=== PATIENT | female | born 1995 ===

== ENCOUNTER 2024-03-05 07:30 | Emergency (ER) | payer OTHER, SELFPAY ==
--- NOTE | ~2024-03-05 | XR_ITS ---
RADIOGRAPH RIGHT ANKLE AND RIGHT FOOT CLINICAL HISTORY: Pain. COMPARISON: No relevant prior studies are available for comparison. TECHNIQUE: 2 views of the right ankle and 3 views of the right foot. FINDINGS: No acute fracture or subluxation. Joint spaces are maintained. No erosive changes. No unusual soft tissue calcifications. Mild diffuse nonspecific soft tissue swelling. XR/XR foot RT min 3V IMPRESSION: 1. No acute fracture or subluxation. 2. Mild diffuse nonspecific soft tissue swelling. Electronically signed by: Brie Bell MD 03/05/2024 08:48 AM EDT
--- NOTE | ~2024-03-05 | XR_ITS ---
RADIOGRAPH RIGHT ANKLE AND RIGHT FOOT CLINICAL HISTORY: Pain. COMPARISON: No relevant prior studies are available for comparison. TECHNIQUE: 2 views of the right ankle and 3 views of the right foot. FINDINGS: No acute fracture or subluxation. Joint spaces are maintained. No erosive changes. No unusual soft tissue calcifications. Mild diffuse nonspecific soft tissue swelling. XR/XR ankle RT min 3V IMPRESSION: 1. No acute fracture or subluxation. 2. Mild diffuse nonspecific soft tissue swelling. Electronically signed by: Brie Bell MD 03/05/2024 08:48 AM EDT
--- NOTE | 2024-03-05 07:34 | ED.GENADULT ---
HPI - General Adult General Chief complaint: Extremity Injury, Lower Stated complaint: r foot inj Time Seen by Provider: 03/05/24 07:33 Source: patient Mode of arrival: ambulatory Limitations: no limitations History of Present Illness ED Provider: Summer Morris PA-C HPI narrative: Patient is a 28 year old assigned female at with no reported medical history presenting to the emergency department today with right ankle pain. Patient states that 1 week ago she jumped and landed on her foot in an inverted way and heard a loud pop. Patient states that it continues to hurt when putting weight on it. Patient denies any dizziness, lightheadedness, abdominal pain, nausea, vomiting, fever, chills, blurry vision, double vision, loss of vision, chest pain, difficulty breathing, shortness of breath, back pain, night sweats, pain with urination, increased urinary frequency, increased urinary urgency, blood in her urine or stool, syncope or a near syncopal episode, bowel incontinence, bladder incontinence, or any other complaints at this time. Onset (ago): week(s) (1) Location: right and lower extremity Relieving factors: none Exacerbating factors: none Associated symptoms: denies other symptoms Treatments prior to arrival: none Related Data Allergies Allergy/AdvReac Type Severity Reaction Status Date / Time cephalexin [From Keflex] Allergy Unknown Verified 03/05/24 07:42 Sulfa (Sulfonamide Allergy Unknown Verified 03/05/24 07:42 Antibiotics) Review of Systems Constitutional: Constitutional: Reports no additional constitutional complaints, Denies chills, Denies fever(s) and Denies night sweats Eyes: Eyes: Reports no additional eye complaints, Denies blurry vision, Denies change in vision, Denies diplopia, Denies eye discharge, Denies loss of vision and Denies eye pain ENT: Denies dizziness Cardiovascular: Cardiovascular: Reports no additional cardiovascular complaints, Denies chest pain, Denies lightheadedness, Denies Loss of Consciousness and Denies dyspnea Respiratory: Respiratory: Reports no additional respiratory complaints and Denies dyspnea Gastrointestinal: Gastrointestinal: Reports no additional gastrointestinal complaints, Denies abdominal pain, Denies melena, Denies hematochezia, Denies change in bowel habits and Denies change in stool character Genitourinary: Genitourinary: Denies hematuria, Denies urinary frequency, Denies dysuria, Denies urinary incontinence, Denies urinary hesitancy and Denies urinary urgency Musculoskeletal: Musculoskeletal: Reports no additional musculoskeletal complaints, Denies numbness and Denies tingling Comments: right ankle pain Neurologic: Denies dizziness, Denies loss of vision, Denies numbness and Denies tingling Psychiatric: Psychiatric: Reports no additional psychiatric complaints Endocrine: Endocrine: Reports no additional endocrine complaints Hematologic/Lymphatic: Hematologic/Lymphatic: Reports no additional hematologic/lymphatic complaints Allergic/Immunologic: Allergic/Immunologic: Reports no additional allergic/immunologic complaints PMFSH Past Medical History Attestation statement: The following information was validated with the patient. Source: old records reviewed and nursing notes reviewed Social History Social History Advance Directives: No Advance Directives Information Provided: Yes Do you have a plan to hurt others: No Plan Physical Exam ED Vital Signs: Vital Signs - 24 hr 03/05/24 07:42 Temperature 98.1 F Pulse Rate 96 Respiratory Rate 16 Blood Pressure 113/73 Pulse Oximetry 97 Oxygen Delivery Method Room Air BMI result Body Mass Index 32.9 Const General: cooperative, no acute distress, alert and awake Nutritional Appearance: well nourished Orientation/consciousness: patient oriented x3 Limitations: no limitations HENMT Head: Yes normal to inspection and Yes atraumatic Ears: hearing grossly normal bilaterally and external ears normal General nose exam: Normal external nose present, no nasal discharge noted and no epistaxis Face and sinus: Yes normal facial exam, No abrasion and No laceration Mouth: Normal oral and palatal mucosa present, no drooling and no muffled voice Eyes General: appearance normal, both eyes and all related structures Periorbital: periorbital findings normal Eyelids: Yes eyelids normal Conjunctivae: conjunctivae normal Pupils: Equal, round and reactive pupils present EOM: EOMs intact bilaterally Neck Neck: Yes normal visual inspection, Yes full ROM and Yes no lymphadenopathy Chest Chest palpation & inspection: normal inspection of the chest Resp Effort & Inspection: normal respiratory effort and able to speak in complete sentences GI Inspection: Yes normal to inspection Neuro General: patient oriented x3 and moves all extremities Cranial nerves: Yes Equal, round and reactive pupils present Cognition (Neuro): normal cognition Extrem Other: chronic missing left lower extremity below the elbow right ankle swelling, pain with ROM Psych Appearance: grossly normal Mental Status: mental status grossly normal Affect: normal affect Attitude: cooperative Thought process: Normal thought process present Thought content: Normal thought content present Insight: Good insight present (Psych) Procedures Orthopedic Splinting/Casting Injury #1: Side: right Lower Extremity Injury Location: ankle Medical Decision Making Medical Decision Making MDM Narrative: Patient is a 28 year old assigned female at with no reported medical history presenting to the emergency department today with right ankle pain. Patient's physical exam was as noted in the physical exam portion of this note. Patient's right foot and ankle x-rays showed no acute process. I explained my physical exam findings as well as all test results to the patient. I answered all questions asked by the patient. Patient's ankle was placed in a walking boot, without incident. Patient's PMS was intact prior to and after boot placement. I stressed the importance of the patient taking her medication as directed (either prescribed or as the over the counter packaging recommends). I stressed the importance of the patient following up with her primary care provider and an orthopedic provider. I stressed the importance of the patient returning to the emergency department immediately if her symptoms were to worsen or if she were to develop any dizziness, shortness of breath, difficulty breathing, chest pain, blurry vision, loss of vision, nausea, vomiting, abdominal pain, fever, chills, back pain, or any other complaints. Patient verbalized agreement and understanding with this treatment plan and discharge. Differential Diagnosis Differential Diagnoses: The differential diagnosis associated with the presentation includes Ankle sprain Ankle strain Ligament injury Ankle fracture Admission/Observation Consideration of admission/observation: Escalation of care including admission/observation considered Patient would have been admitted to the hospital had her work up had any findings where hospital admission was appropriate and her clinical presentation warranted hospital admission. Independent Interpretation I performed an independent interpretation of an: Plain X-Ray Interpretation: My interpretation is in agreement with the radiologist's impression of these imaging studies. RADIOGRAPH RIGHT ANKLE AND RIGHT FOOT CLINICAL HISTORY: Pain. COMPARISON: No relevant prior studies are available for comparison. TECHNIQUE: 2 views of the right ankle and 3 views of the right foot. FINDINGS: No acute fracture or subluxation. Joint spaces are maintained. No erosive changes. No unusual soft tissue calcifications. Mild diffuse nonspecific soft tissue swelling. XR/XR foot RT min 3V IMPRESSION: 1. No acute fracture or subluxation. 2. Mild diffuse nonspecific soft tissue swelling. Electronically signed by: Brie Bell MD 03/05/2024 08:48 AM EDT RP Dictated By: Brie Bell Signed By: Electronically signed by Brie Bell 03/05/24 0848 Radiology Impression Discussion of test interpretation with radiology: I have reviewed the radiologist's reading. Discharge Plan Discharge Clinical Impression: Ankle sprain and strain Patient Disposition: Home, Self-Care Instructions: Ankle Sprain (DC) Additional Instructions: Follow up with your primary care provider and an orthopedic provider. Return to the emergency department immediately if your symptoms worsen or if you develop any dizziness, shortness of breath, difficulty breathing, chest pain, blurry vision, loss of vision, nausea, vomiting, abdominal pain, fever, chills, back pain, or any other complaints. Referrals: [facility] – [place] [facility] [Provider Group] (Call to establish and follow up with a primary care provider. If you already have a primary care provider, please follow up with them.) [facility] – [place] [facility] [place] [Provider Group] (Call to establish and follow up with a primary care provider. If you already have a primary care provider, please follow up with them.) [facility] – [place] [facility] [Provider Group] (Call to establish and follow up with a primary care provider. If you already have a primary care provider, please follow up with them.) [facility] [place] [facility] [Provider Group] (Call to establish and follow up with an orthopedic provider.) Print Language: Slovak
[2024-03-05 07:42] VITALS: BP 113/73; PULSE 96; RESP 16; TEMP 36.7; O2SAT 97; BMI 32.9
[2024-03-05 09:28] VITALS: BP 113/73; PULSE 96; RESP 16; TEMP 36.7; O2SAT 97
== END 2024-03-05 09:28 | disposition home or self-care (01) ==
PROVIDERS: Emergency Provider Emergency Medicine
DX: S93.401A Sprain of unspecified ligament of right ankle, initial encounter (principal); S96.911A Strain of unspecified muscle and tendon at ankle and foot level, right foot, initial encounter; X50.1XXA Overexertion from prolonged static or awkward postures, initial encounter; Y93.39 Activity, other involving climbing, rappelling and jumping off; Y92.9 Unspecified place or not applicable; Y99.9 Unspecified external cause status
CPT/HCPCS: 73610; 73630; 99283